=== PATIENT | male | born 1950 | race Asian ===

== ENCOUNTER 2017-07-22 14:35 | Inpatient (IN) | payer OTHER, MEDICAID ==
--- NOTE | 2017-07-22 15:00 | ED Physician Chart ---
ED Chief Complaint/HPI - Patient Information Date Seen:: 07/22/17 Time Seen:: 14:50 Chief Complaint:: diarrhea History of Present Illness:: [facility]. He was diagnosed as having C diff. diarrhea and has apparently been receiving antibiotics for it but the diarrhea continues. Historian:: Medical Records Review:: Transfer documents Reviewed ED Review of Systems - Review of Systems General/Constitutional: No fever, No chills, No weight loss, No weakness, No diaphoresis, No edema, No loss of appetite Skin: No skin lesions, No rash, No bruising Head: No headache, No light-headedness Eyes: No loss of vision, No pain, No diplopia ENT: No earache, No nasal drainage, No sore throat, No tinnitus Neck: No neck pain, No swelling, No thyromegaly, No stiffness, No mass noted Cardio Vascular: No chest pain, No palpitations, No PND, No orthopnea, No edema Pulmonary: No SOB, No cough, No sputum, No wheezing GI: No nausea, No vomiting, Diarrhea, No pain, No melena, No hematochezia, No constipation, No hematemesis G/U: No dysuria, No frequency, No hematuria Musculoskeletal: No bone or joint pain, No back pain, No muscle pain Endocrine: No polyuria, No polydipsia Psychiatric: No prior psych history, No depression, No anxiety, No suicidal ideation Hematopoietic: No bruising, No lymphadenopathy Allergic/Immuno: No urticaria, No angioedema Neurological: No syncope, No focal symptoms, No weakness, No paresthesia, No headache, No seizure, No dizziness, No confusion, No vertigo ED Past Medical History - Past Medical History Past Medical History: HTN, DM, CVA/TIA, Dementia, Other (C. difficile; atherosclerotic cardiovascular disease; neurogenic bladder) Family History: Other (unavailable) Social History: Care Facility Surgical History: other (suprapubic catheter) Psychiatricy History: Dementia Medication: Reviewed Family Medical History - Family Member Mother History Unknown: Yes Ethnicity: Non- Living Status: Unknown ED Physical Exam - Physical Examination Other Gen/Cons comments:: Mild chronically ill-appearing; in no acute distress Head: Atraumatic Eyes: Lids, conjuctiva normal, PERRL Other Skin comments:: Several decubiti present ENMT: External ears, nose nl, Nasal exam nl, Lips, teeth, gums nl Neck: No stridor Respiratory: Nl effort/Exclusion, Clear to Auscultation Cardio Vascular: RRR, No murmur, gallop, rubs GI: No tenderness/rebounding/guarding, No organomegaly, No hernia, Normal BS's, Nondistended, No mass/bruits Other Extremities comments:: Contracture left hand Neuro/Psych: No focal deficits (contracture right hand) ED Labs/Radiology/EKG Results - Lab Results Results: Laboratory Results - last 24 hr 07/22/17 07/22/17 15:05 15:05 WBC 8.7 RBC 3.45 L Hgb 9.7 L Hct 29.7 L MCV 86.1 MCH 28.0 MCHC Differential 32.5 RDW 17.4 Plt Count 391 MPV 6.7 Neutrophils % 78.1 Lymphocytes % 11.8 L Monocytes % 5.6 Eosinophils % 4.2 Basophils % 0.3 Sodium 136 Potassium 3.6 Chloride 107 Carbon Dioxide 17.4 L Anion Gap 15.2 BUN 21 Creatinine 0.8 Est GFR ( Amer) > 60.0 Est GFR (Non-Af Amer) > 60.0 BUN/Creatinine Ratio 26.3 Glucose 218 H Calcium 8.8 Comments:: Chest x-ray was normal except for elevation of right hemidiaphragm ED Septic Shock - . Is Septic Shock (SBP<90, OR Lactate>4 mmol\L) present?: No ED Reassessment (Disposition) - Reassessment Reassessment Condition:: Unchanged - Diagnosis Diagnosis:: Anemia; the disc diarrhea - Patient Disposition Admitted to:: Med/Surg Spoke to:: Corby Arias Admitting Medical Physician:: Corby Arias Condition at Disposition:: Stable, Unchanged
[2017-07-22] MEDS ORDERED: Sodium Chloride 0.9% 1,000 ML IV ONE (15:11)
[2017-07-22 15:15] LABS: % BASOPHILS 0.3 % (0.0-2.0); % EOSINOPHILS 4.2 % (0.0-5.0); % LYMPHOCYTES 11.8 % (20.0-50.0); % MONOCYTES 5.6 % (2.0-10.0); % NEUTROPHILS 78.1 % (40.0-80.0); EOSINOPHILE ABSOLUTE 0.4 Th/cmm (0.1-0.4); HEMATOCRIT 29.7 % (41.0-60); HEMOGLOBIN 9.7 gm/dL (12-16); MEAN CELL VOLUME 86.1 fl (80-99); MEAN CORPUSCULAR HGB CONC 32.5 pg (28.0-36.0); MEAN PLATELET VOLUME 6.7 fl; MONOCYTE ABSOLUTE 0.5 Th/cmm (0.3-1.0); NEUTROPHILE ABSOLUTE 6.8 Th/cmm (1.8-8.0); PLATELET COUNT 391 Th/cmm (150-400); RED BLOOD COUNT 3.45 Mil/cmm (3.80-5.80); RED CELL DISTRIBUTION WIDTH 17.4 % (11.5-20.0); WHITE BLOOD COUNT 8.7 Th/cmm (4.8-10.8)
[2017-07-22 15:34] LABS: ANION GAP 15.2 (7.0-16.0); BUN - UREA NITROGEN 21 mg/dL (7-25); CALCIUM SERUM 8.8 mg/dL (8.6-10.3); CARBON DIOXIDE 17.4 mEq/L (21.0-31.0); CHLORIDE 107 mEq/L (98-107); CREATININE - SERUM 0.8 mg/dL (0.7-1.3); GFR AFRICAN-AMERICAN > 60.0 ml/min (>90); GFR NON AFRICAN-AMERICAN > 60.0 ml/min; GLUCOSE 218 mg/dL (70-105); POTASSIUM SERUM 3.6 mEq/L (3.5-5.1); SODIUM SERUM 136 mEq/L (136-145)
[2017-07-22 18:59] LABS: A1C % 7.9 % (4.0-6.0)
[2017-07-22] MEDS ORDERED: D5-0.45NS 1,000 ML IV ONE (21:17)
[2017-07-22 23:35] VITALS: BP 117/65
--- NOTE | 2017-07-22 23:47 | Consultation ---
Consult Note - Consult Note Service Date: 07/22/17 Referring Physician: Corby Arias Consult Note: PHYSICIAN Consultation Note: Date of Admission: 07/22/17 Purpose of Consultation: CDAC. Chief Complaint: Patient JUNIOR HAQUE was admitted to location Medical/Surgical Unit I with DIARHHEA. History of Present Illness: 67-year-old male with a past medical history of HTN , DM, CVA/TIA, Dementia, C. difficile colitis, neurogenic bladder, coronary artery disease brought from a nursing facility for diarrhea. History came positive for C. difficile colitis and started on vancomycin by mouth. He was sent to the ER for further evaluation and management. On initial evaluation, his temperature is 98.2F and WBC count was 8400. Infectious disease consultation was called for treatment of C. difficile colitis. Past Medical History: HTN, DM, CVA/TIA, Dementia, C. difficile colitis, neurogenic bladder, carotid disease Allergies Allergy/AdvReac Type Severity Reaction Status Date / Time No Known Allergies Allergy Verified 07/22/17 15:26 Vital Signs Temp 98.1 F 07/22/17 20:04 Pulse 82 07/22/17 20:04 Resp 18 07/22/17 20:04 BP 117/65 07/22/17 23:34 Pulse Ox 98 07/22/17 20:04 Intake & Output 07/22/17 07/22/17 07/23/17 06:59 18:59 06:59 Weight (lbs) 79.407 kg Home Medication Medication Instructions Recorded Type Acetaminophen [Tylenol] 650 mg PO Q6HR PRN 07/22/17 History Acetaminophen [Tylenol] 650 mg PO Q6HR PRN 07/22/17 History Allopurinol 100 mg PO DAILY 07/22/17 History Amlodipine Besylate 5 mg PO DAILY 07/22/17 History Ascorbic Acid [Vitamin C] 500 mg PO DAILY 07/22/17 History Aspirin [Children's Aspirin] 81 mg PO DAILY 07/22/17 History Atorvastatin Calcium [Lipitor] 80 mg PO DAILY 07/22/17 History Bisacodyl 10 mg RC DAILY PRN 07/22/17 History Clopidogrel [Plavix] 75 mg PO DAILY 07/22/17 History Docusate Sodium [Colace] 100 mg PO BID 07/22/17 History Fenofibrate [Lipofen] 145 mg PO DAILY 07/22/17 History Ferrous Sulfate [Nadir-Time] 325 mg PO TID 07/22/17 History Fish Oil [[place] 3] 1,000 mg PO DAILY 07/22/17 History Folic Acid [Folate*] 1 mg PO DAILY 07/22/17 History Magnesium Hydroxide [Milk of 30 ml PO DAILY PRN 07/22/17 History Magnesia] Multivit-Min/Iron Fum/Folic AC 1 tab PO DAILY 07/22/17 History [Yunnb-Anirxfn-Vpajjkex Tablet] Niacin 500 mg PO DAILY 07/22/17 History Polyethylene Glycol 3350 [Miralax] 17 gm PO DAILY PRN 07/22/17 History Sennosides A and B [Senna] 8.6 mg PO HS PRN 07/22/17 History Tramadol HCl [Ultram] 50 mg pe PO Q6HR PRN 07/22/17 History Vit B1 Mn/B2/B3/B5/B6/B12/C/FA [B 1 tab PO DAILY 07/22/17 History Complex with Vitamin C Tab] Zinc Sulfate 220 mg PO DAILY 07/22/17 History Current Medications Generic Name Dose Route Start Last Admin Trade Name Freq PRN Reason Stop Dose Admin Dextrose/Sodium Chloride 1,000 mls @ 50 mls/hr 07/22/17 21:17 D5-0.45ns IV 07/23/17 17:16 .Q20H ONE Insulin Aspart 0 units 07/23/17 07:30 Novolog Insulin Sliding Scale SUBQ 09/21/17 07:29 ACHS [facility] Protocol Vancomycin HCl 250 mg 07/23/17 09:00 Vancomycin Oral PO 09/21/17 08:59 QID [facility] Review of Systems: A 12 point ROS was reviewed with the pertinent positive and negatives noted in the HPI. General/Constitutional: No fever, No chills, No weight loss, No weakness, No diaphoresis, No edema, No loss of appetite Skin: No skin lesions, No rash, No bruising Head: No headache, No light-headedness Eyes: No loss of vision, No pain, No diplopia ENT: No earache, No nasal drainage, No sore throat, No tinnitus Neck: No neck pain, No swelling, No thyromegaly, No stiffness, No mass noted Cardio Vascular: No chest pain, No palpitations, No PND, No orthopnea, No edema Pulmonary: No SOB, No cough, No sputum, No wheezing GI: No nausea, No vomiting, No pain, No melena, No hematochezia, No constipation , No hematemesis. Diarrhea present. G/U: No dysuria, No frequency, No hematuria Musculoskeletal: No bone or joint pain, No back pain, No muscle pain Endocrine: No polyuria, No polydipsia Psychiatric: No prior psych history, No depression, No anxiety, No suicidal ideation Hematopoietic: No bruising, No lymphadenopathy Allergic/Immuno: No urticaria, No angioedema Neurological: No syncope, No focal symptoms, No weakness, No paresthesia, No headache, No seizure, No dizziness, No confusion, No vertigo Physical Exam: General: Comfortable, not in acute distress. HEENT: Head: Normocephalic. Oral cavity: Moist, pink tongue eyes: No pallor. No icterus. Pupil PERRLA. EOMI. Neck: Supple, no Stephanie. No use of X his neck muscles. Cardio: S1 and S2 within normal limits regular rhythm no murmur or gallop. Respiratory: Vesicular breath sound no crackles no wheezing. Abdominal: Soft, Nontender, nondistended bowel symptoms present. Genital/Urinary: Deferred. Extremities: No cyanosis, no clubbing, no edema. Neurological: Alert, awake, oriented 3. Assessment: 1. C. difficile colitis. No diarrhea now. 2. CVA. 3. HTN. 4. DM 2. 5. Coronary artery disease 6. Dementia, 7. Neurogenic bladder. Plan: Continue vancomycin orally 14 days. The patient has no diarrhea, for 48 hours. May discontinue isolation. Thank you, Dr. Arias for involving me in taking care of this patient. Signed, Magdiel Fall M.D. [id number]
[2017-07-23 06:30] LABS: % BASOPHILS 0.3 % (0.0-2.0); % EOSINOPHILS 4.6 % (0.0-5.0); % LYMPHOCYTES 9.2 % (20.0-50.0); % MONOCYTES 6.3 % (2.0-10.0); % NEUTROPHILS 79.6 % (40.0-80.0); EOSINOPHILE ABSOLUTE 0.4 Th/cmm (0.1-0.4); HEMATOCRIT 27.1 % (41.0-60); LYMPHOCYTE ABSOLUTE 0.8 Th/cmm (1.5-3.0); MEAN CELL VOLUME 86.2 fl (80-99); MEAN CORPUSCULAR HEMOGLOBIN 28.6 pg (27.0-31.0); MEAN CORPUSCULAR HGB CONC 33.2 pg (28.0-36.0); MONOCYTE ABSOLUTE 0.5 Th/cmm (0.3-1.0); NEUTROPHILE ABSOLUTE 6.7 Th/cmm (1.8-8.0); PLATELET COUNT 378 Th/cmm (150-400); RED BLOOD COUNT 3.15 Mil/cmm (3.80-5.80); WHITE BLOOD COUNT 8.4 Th/cmm (4.8-10.8)
[2017-07-23 06:31] LABS: ANION GAP 11.4 (7.0-16.0); BUN - UREA NITROGEN 17 mg/dL (7-25); CALCIUM SERUM 8.6 mg/dL (8.6-10.3); CARBON DIOXIDE 22.6 mEq/L (21.0-31.0); CHLORIDE 110 mEq/L (98-107); CREATININE - SERUM 0.7 mg/dL (0.7-1.3); GFR AFRICAN-AMERICAN > 60.0 ml/min (>90); GFR NON AFRICAN-AMERICAN > 60.0 ml/min; GLUCOSE 184 mg/dL (70-105); SODIUM SERUM 141 mEq/L (136-145)
--- NOTE | 2017-07-23 07:50 | Diagnostic Imaging Report ---
Portable chest x-ray Time: 1516 History: Pneumonia Allowing for portable technique the heart size is normal. No focal pulmonary parenchymal processes. No hilar or mediastinal abnormalities. Impression: No acute abnormalities.
[2017-07-23] MEDS ORDERED: Potassium Chloride 40 MEQ, Lidocaine 1% 20mL Vial 25 MG in Sodium Chloride 0.9% 250 ML IV ONE (08:03)
[2017-07-23] MEDS ORDERED: Probiotic Screen MC PRN (08:30)
[2017-07-23] MEDS: INSULIN ASPART SLIDING SCALE 100 UNITS/ML UNIT SUBQ SCH ×4 (08:47→21:20)
[2017-07-23] MEDS: KCL 20mEq/100mL Premix Bag IV SCH ×2 (08:48→11:16)
[2017-07-23] MEDS: Vancomycin HCL 250 mg /10mL UDC PO SCH ×4 (09:22→21:21)
--- NOTE | 2017-07-23 13:29 | History & Physical ---
ADMIT DATE: 07/22/2017 HISTORY OF PRESENT ILLNESS: The patient is a 67-year-old male patient who was having more diarrhea, dehydration at skilled facility. The patient came to the Emergency Room and was admitted. The patient known to have history of C diff infection, has been taking antibiotics. Complains of dizziness, severe weakness. Otherwise, system review is negative. PAST MEDICAL HISTORY: Hypertension, history of diabetes, and history of dementia. PHYSICAL EXAMINATION: GENERAL: Alert, oriented, chronically ill looking male patient. VITAL SIGNS: Noted on the chart. HEAD: Normal. ENT: Normal. NECK: Supple, nontender. LUNGS: Clear. CARDIOVASCULAR SYSTEM: S1, S2 heard. ABDOMEN: Soft. CENTRAL NERVOUS SYSTEM: The patient is confused. LABORATORY AND DIAGNOSTIC DATA: Hemoglobin was low, it was 9.7 indicating anemia. Electrolytes: BUN and creatinine is 21 and 0.5. Chest x-ray showed elevation of the right diaphragm. DIAGNOSES: Chronic anemia, history of diarrhea, enteritis, C diff infection, history of hypertension . PLAN: The patient is being admitted. I will go ahead and have a GI workup as well as ID doctor workup and I will go from there. JOB# [id number]
--- NOTE | 2017-07-23 13:37 | Infectious Disease Prog Note ---
Infectious Disease Subjective - Review of Systems Service Date: 07/23/17 Subjective: No diarrhea no fever. He denies any abdomen pain Infectious Disease Objective - Results Result Diagrams: 07/23/17 05:35 07/23/17 05:35 Recent Labs: Laboratory Last Values WBC 8.4 Th/cmm (4.8-10.8) 07/23/17 05:35 RBC 3.15 Mil/cmm (3.80-5.80) L 07/23/17 05:35 Hgb 9.0 gm/dL (12-16) L 07/23/17 05:35 Hct 27.1 % (41.0-60) L 07/23/17 05:35 MCV 86.2 fl (80-99) 07/23/17 05:35 MCH 28.6 pg (27.0-31.0) 07/23/17 05:35 MCHC Differential 33.2 pg (28.0-36.0) 07/23/17 05:35 RDW 17.0 % (11.5-20.0) 07/23/17 05:35 Plt Count 378 Th/cmm (150-400) 07/23/17 05:35 MPV 7.0 fl 07/23/17 05:35 Neutrophils % 79.6 % (40.0-80.0) 07/23/17 05:35 Lymphocytes % 9.2 % (20.0-50.0) L 07/23/17 05:35 Monocytes % 6.3 % (2.0-10.0) 07/23/17 05:35 Eosinophils % 4.6 % (0.0-5.0) 07/23/17 05:35 Basophils % 0.3 % (0.0-2.0) 07/23/17 05:35 Sodium 141 mEq/L (136-145) 07/23/17 05:35 Potassium 3.0 mEq/L (3.5-5.1) L 07/23/17 05:35 Chloride 110 mEq/L (98-107) H 07/23/17 05:35 Carbon Dioxide 22.6 mEq/L (21.0-31.0) 07/23/17 05:35 Anion Gap 11.4 (7.0-16.0) 07/23/17 05:35 BUN 17 mg/dL (7-25) 07/23/17 05:35 Creatinine 0.7 mg/dL (0.7-1.3) 07/23/17 05:35 Est GFR ( Amer) > 60.0 ml/min (>90) 07/23/17 05:35 Est GFR (Non-Af Amer) > 60.0 ml/min 07/23/17 05:35 BUN/Creatinine Ratio 24.3 07/23/17 05:35 Glucose 184 mg/dL (70-105) H 07/23/17 05:35 POC Glucose 183 MG/DL (70 - 105) H 07/23/17 12:15 Hemoglobin A1c % 7.9 % (4.0-6.0) H 07/22/17 15:05 Calcium 8.6 mg/dL (8.6-10.3) 07/23/17 05:35 TSH 1.71 uIU/ml (0.34-5.60) 07/23/17 05:35 - Physical Exam Vitals and I&O: Vital Signs Temp 98.0 F 07/23/17 11:45 Pulse 47 07/23/17 11:45 Resp 18 07/23/17 11:45 BP 106/52 07/23/17 11:45 Pulse Ox 98 07/23/17 11:45 Intake & Output 07/22/17 07/23/17 07/23/17 18:59 06:59 18:59 Intake Total 300 100 Output Total 550 Balance -250 100 Weight (lbs) 79.407 kg Intake: Intake, IV Amount 100 KCL 20mEq/100mL Premix 20 100 meq In 100 ml @ 50 mls/ hr IV Q2H [facility] Rx#: [id number] Oral 300 Output: Urine 550 Other: Weight Source Bedscale Active Medications: Current Medications [place] Oil/[place] Balsam/Trypsin (Venelex) 1 appl TP DAILY [facility] Stop: 09/21/17 13:59 Dextrose/Sodium Chloride (D5-0.45ns) 1,000 mls @ 50 mls/hr IV .Q20H ONE Stop: 07/23/17 17:16 Last Admin: 07/22/17 21:20 Dose: 50 mls/hr Insulin Aspart (Novolog Insulin Sliding Scale) 0 units SUBQ ACHS [facility] PRN Reason: Protocol Stop: 09/21/17 07:29 Last Admin: 07/23/17 12:20 Dose: 2 units Miscellaneous (Probiotic Screen) 1 ea MC PRN PRN PRN Reason: PROTOCOL Stop: 09/21/17 08:29 Ondansetron HCl (Zofran) 4 mg IV Q6H PRN PRN Reason: nausea/vomiting Stop: 09/21/17 00:59 Last Admin: 07/23/17 01:05 Dose: 4 mg Vancomycin HCl (Vancomycin Oral) 250 mg PO QID [facility] Stop: 09/21/17 08:59 Last Admin: 07/23/17 13:26 Dose: 250 mg General: no acute distress, well developed, well nourished HEENT: atraumatic, normocephalic, PERRLA, EOMI Neck: supple, no thyromegaly Cardiovascular: S1S2, regular Lungs: clear to auscultation bilaterally, clear to percussion, no crackles Abdomen: soft, bowel sounds, no tender, no distended, no mass, no rebound, no hepatomegaly Extremities: no cyanosis, no clubbing, no edema, no lines, no AVF/AVG Neurological: awake, alert, oriented Infectious Disease Assmt/Plan - Assessment Assessment: 1. C. difficile colitis. No diarrhea now. 2. CVA. 3. HTN. 4. DM 2. 5. Coronary artery disease 6. Dementia, 7. Neurogenic bladder. - Plan Plan: Continue vancomycin orally 14 days.
[2017-07-23] MEDS ORDERED: VTE Chemical Prophylaxis Screen/Admission MC PRN (15:05)
[2017-07-23] MEDS: Venelex 60gm Tube TP SCH (16:26)
--- NOTE | 2017-07-23 18:30 | General Progress Note ---
Objective - Results Result Diagrams: 07/23/17 05:35 07/23/17 05:35 Recent Labs: Laboratory Last Values WBC 8.4 Th/cmm (4.8-10.8) 07/23/17 05:35 RBC 3.15 Mil/cmm (3.80-5.80) L 07/23/17 05:35 Hgb 9.0 gm/dL (12-16) L 07/23/17 05:35 Hct 27.1 % (41.0-60) L 07/23/17 05:35 MCV 86.2 fl (80-99) 07/23/17 05:35 MCH 28.6 pg (27.0-31.0) 07/23/17 05:35 MCHC Differential 33.2 pg (28.0-36.0) 07/23/17 05:35 RDW 17.0 % (11.5-20.0) 07/23/17 05:35 Plt Count 378 Th/cmm (150-400) 07/23/17 05:35 MPV 7.0 fl 07/23/17 05:35 Neutrophils % 79.6 % (40.0-80.0) 07/23/17 05:35 Lymphocytes % 9.2 % (20.0-50.0) L 07/23/17 05:35 Monocytes % 6.3 % (2.0-10.0) 07/23/17 05:35 Eosinophils % 4.6 % (0.0-5.0) 07/23/17 05:35 Basophils % 0.3 % (0.0-2.0) 07/23/17 05:35 Sodium 141 mEq/L (136-145) 07/23/17 05:35 Potassium 3.0 mEq/L (3.5-5.1) L 07/23/17 05:35 Chloride 110 mEq/L (98-107) H 07/23/17 05:35 Carbon Dioxide 22.6 mEq/L (21.0-31.0) 07/23/17 05:35 Anion Gap 11.4 (7.0-16.0) 07/23/17 05:35 BUN 17 mg/dL (7-25) 07/23/17 05:35 Creatinine 0.7 mg/dL (0.7-1.3) 07/23/17 05:35 Est GFR ( Amer) > 60.0 ml/min (>90) 07/23/17 05:35 Est GFR (Non-Af Amer) > 60.0 ml/min 07/23/17 05:35 BUN/Creatinine Ratio 24.3 07/23/17 05:35 Glucose 184 mg/dL (70-105) H 07/23/17 05:35 POC Glucose 163 MG/DL (70 - 105) H 07/23/17 16:28 Hemoglobin A1c % 7.9 % (4.0-6.0) H 07/22/17 15:05 Calcium 8.6 mg/dL (8.6-10.3) 07/23/17 05:35 TSH 1.71 uIU/ml (0.34-5.60) 07/23/17 05:35 - Physical Exam Vitals and I&O: Vital Signs Temp 98.1 F 07/23/17 15:33 Pulse 51 07/23/17 15:33 Resp 18 07/23/17 15:33 BP 110/69 07/23/17 15:33 Pulse Ox 98 07/23/17 15:33 Intake & Output 07/22/17 07/23/17 07/23/17 18:59 06:59 18:59 Intake Total 300 600 Output Total 550 Balance -250 600 Weight (lbs) 79.407 kg 79.407 kg Intake: Intake, IV Amount 100 KCL 20mEq/100mL Premix 20 100 meq In 100 ml @ 50 mls/ hr IV Q2H [facility] Rx#: [id number] Oral 300 500 Output: Urine 550 Other: # Voids 3 # Bowel Movements 1 Weight Source Bedscale Bedscale Active Medications: Current Medications [place] Oil/[place] Balsam/Trypsin (Venelex) 1 appl TP DAILY [facility] Stop: 09/21/17 13:59 Last Admin: 07/23/17 16:26 Dose: 1 appl Heparin Sodium (Porcine) (Heparin) 5,000 units SUBQ Q12H [facility] Stop: 09/21/17 20:59 Insulin Aspart (Novolog Insulin Sliding Scale) 0 units SUBQ ACHS [facility] PRN Reason: Protocol Stop: 09/21/17 07:29 Last Admin: 07/23/17 16:29 Dose: Not Given Miscellaneous (Probiotic Screen) 1 ea MC PRN PRN PRN Reason: PROTOCOL Stop: 09/21/17 08:29 Miscellaneous (Vte Chemical Prophylaxis Screen/ Admission) 1 ea PRN PRN PRN Reason: PROTOCOL Stop: 09/21/17 15:04 Mupirocin (Bactroban Oint) 1 appl NS BID [facility] Stop: 07/28/17 09:01 Ondansetron HCl (Zofran) 4 mg IV Q6H PRN PRN Reason: nausea/vomiting Stop: 09/21/17 00:59 Last Admin: 07/23/17 01:05 Dose: 4 mg Vancomycin HCl (Vancomycin Oral) 250 mg PO QID [facility] Stop: 09/21/17 08:59 Last Admin: 07/23/17 16:26 Dose: 250 mg Nutritional Asmnt/Malnutr-PDOC - Dietary Evaluation Malnutrition Findings (Please click <Entered> for more info): Nutritional Asmnt/Malnutrition Start: 07/23/17 16: 22 Text: Status: Complete Freq: Document 07/23/17 16:22 ANGELA (Rec: 07/23/17 16:54 LCOTIS [email or web address]) Nutritional Asmnt/Malnutrition Patient General Information Nutritional Screening High Risk Consult Diagnosis diarhhea Pertinent Medical Hx/Surgical Hx HTN, Dm, CVA/TIA, dementia, c- diff, atherosclerotic cardiovasculor disease, newregenic bladdar, suprapubic cathether, dementia Subjective Information Consult received for multiple wounds. Pt seen sitting up in bed having lunch at time of visit. Pt denied N/V today so far, stated appetite "so so". Spoke with CLEMENT Rivas, pt has been eating ok today. Current Diet Order/ Nutrition Support soft/bland Pertinent Medications D5-0.45ns, heparin, novolog, zofran, vancomycin Pertinent Labs 07/23 K 3.0, cl 110, glucose 184, POC 173-183 07/22 glucose 218, a1c 7.9 Nutritional Hx/Data Height 1.7 m Height (Calculated Centimeters) 170.2 Current Weight (lbs) 79.379 kg Weight (Calculated Kilograms) 79.4 Weight (Calculated Grams) 91344.7 [place] Body Weight 148 Body Mass Index (BMI) 27.3 Weight Status Overweight GI Symptoms GI Symptoms Nausea Vomitting Last BM not indicated Difficult in: None Skin Integrity/Comment: pressure ulceration to left foot, right ankle, right hip, left hip and sacrum Estimated Nutritional Goals BEE in Kcals: Adj wt of IBW Calories/Kcals/Kg 25-30 Kcals Calculated 7826-9113 Protein: Adj wt of IBW Protein g/k.2-1.4 Protein Calculated 84-98 Fluid: ml 1750-2100ml (1ml/kcal) Nutritional Problem 2. Problem Problem increased nutrition needs Etiology increased metabolic demand Signs/Symptoms: pressure ulcer multiple sites 1. Problem Problem altered nutrition related labs Etiology hx of DM Signs/Symptoms: glucose 184-218, POC 173-183, a1c 7.9 Malnutrition Alert Protein-Calorie Malnutrition N/A Is there a minimum of two criteria No selected? Query Text:Check all the applicable criteria. A minimum of two criteria are recommended for diagnosis of either severe or non-severe malnutrition. Intervention/Recommendation Comments 1. Recommend adding CCHO-60gm diet for better glycemia control, Arginaid BID for wound healing. RN notified. 2. Monitor PO intake, wt, labs and skin integrity 3. F/U as high risk in 2-3 days, 07/25-07/26 Expected Outcomes/Goals Expected Outcomes/Goals 1. PO intake to meet at least 75% of nutritional needs. 2. Wt stability, skin integrity to improve, labs to approach WNL.
--- NOTE | 2017-07-24 00:09 | Consultation ---
DATE OF CONSULTATION: 07/23/2017 GASTROENTEROLOGY CONSULTATION REQUESTING PHYSICIAN: Gregg Arias M.D. REASON FOR CONSULTATION: Diarrhea. HISTORY OF PRESENT ILLNESS: A 67-year-old male with history of C. diff colitis in the recent past, admitted from his snf for diarrhea. He also has anemia, old stroke, diabetes mellitus, hypertension, coronary artery disease, encephalopathy, and neurogenic bladder. PAST MEDICAL HISTORY: As above. MEDICATIONS: Here are subcutaneous heparin, insulin sliding scale, probiotics, Bactroban ointment, Zofran p.r.n., oral vancomycin. ALLERGIES: No known drug allergies. SOCIAL HISTORY: No recent tobacco, alcohol, or drugs. FAMILY HISTORY: Noncontributory. REVIEW OF SYSTEMS: A comprehensive 12-point review of systems conducted and is positive for those signs and symptoms present in history of present illness. PHYSICAL EXAMINATION: VITAL SIGNS: Temperature 98.8, blood pressure 111/60, pulse of 88, respirations 18, and O2 sats 99%. GENERAL: The patient is well-developed, well-nourished elderly male, in no acute distress. HEENT: Sclerae nonicteric. Oropharynx is clear. CARDIOVASCULAR: Regular rate and rhythm. LUNGS: Clear to auscultation bilaterally. ABDOMEN: Soft, nontender, and nondistended. EXTREMITIES: No clubbing or cyanosis. RECTAL: Deferred. LABORATORY DATA AND IMAGING: WBC 8.4, hemoglobin 9, and platelet count is 358. Creatinine is 0.7. IMPRESSION: 1. Diarrhea secondary to Clostridium difficile colitis. 2. Anemia. 3. History of old stroke. 4. History of diabetes mellitus. 5. Hypertension. 6. Coronary artery disease. 7. Dementia. 8. Neurogenic bladder. RECOMMENDATIONS: 1. Continue oral vancomycin as per ID case consultant. 2. Probiotics. 3. Oral diet as tolerated. 4. Monitor hemoglobin. 5. He will need endoscopic GI workup at some time in the future if not done recently or prior. If needed, colonoscopy and/or upper endoscopy can be done for workup of anemia once C. diff infection has resolved. Can be done as outpatient. Thank you, Dr. Gregg Arias for involving us in the care of your patient. If you have any further questions, please call us. JOB# [id number] LILIAM
[2017-07-24] MEDS: INSULIN ASPART SLIDING SCALE 100 UNITS/ML UNIT SUBQ SCH ×4 (08:10→21:05)
[2017-07-24] MEDS: Venelex 60gm Tube TP SCH (08:15)
[2017-07-24] MEDS: Vancomycin HCL 250 mg /10mL UDC PO SCH ×4 (08:16→21:09)
[2017-07-24] MEDS ORDERED: Sodium Chloride 0.45% 1,000 ML IV SCH (10:38)
[2017-07-24] MEDS: Sodium Chloride 0.45% 1,000 ML IV SCH (11:30)
--- NOTE | 2017-07-24 13:41 | Progress Notes ---
DATE: 07/24/2017 SUBJECTIVE: The patient was seen in his room. The patient is a poor historian due to medical condition otherwise the patient appears to be in no acute distress. OBJECTIVE: VITAL SIGNS: Temperature 97.5, heart rate of 84, blood pressure 97/50, respiration of 18 and 95% on room air. HEENT: Head is atraumatic and normocephalic. Eyes: Bilateral conjunctivae are clear. Bilateral pupils are equally round and reactive. NECK: Supple. No JVD. CARDIOVASCULAR: S1 and S2, without murmur. PULMONARY: Clear to auscultation. GASTROINTESTINAL: Soft and nontender without guarding. Positive bowel sounds. MUSCULOSKELETAL: No clubbing. No cyanosis noted. ASSESSMENT: 1. Diarrhea secondary to Clostridium difficile colitis. 2. Anemia. 3. Dementia. 4. Hypertension. 5. Coronary artery disease. 6. Neurogenic bladder. 7. History of cerebrovascular accident. PLAN: We will continue current antibiotics and follow up with ID doctor. We are also going to follow up with the GI doctor for possible endoscopic workup, also going to put the patient on half NS at 75 mL per hour for hydration. Treatment plans were discussed with the patient's nurse. Treatment plans were discussed with Dr. Arias. JOB# [id number]
--- NOTE | 2017-07-24 17:46 | Infectious Disease Prog Note ---
Infectious Disease Subjective - Review of Systems Service Date: 07/24/17 Subjective: No diarrhea no fever. He denies any abdomen pain Infectious Disease Objective - Results Result Diagrams: 07/23/17 05:35 07/23/17 05:35 Recent Labs: Laboratory Last Values WBC 8.4 Th/cmm (4.8-10.8) 07/23/17 05:35 RBC 3.15 Mil/cmm (3.80-5.80) L 07/23/17 05:35 Hgb 9.0 gm/dL (12-16) L 07/23/17 05:35 Hct 27.1 % (41.0-60) L 07/23/17 05:35 MCV 86.2 fl (80-99) 07/23/17 05:35 MCH 28.6 pg (27.0-31.0) 07/23/17 05:35 MCHC Differential 33.2 pg (28.0-36.0) 07/23/17 05:35 RDW 17.0 % (11.5-20.0) 07/23/17 05:35 Plt Count 378 Th/cmm (150-400) 07/23/17 05:35 MPV 7.0 fl 07/23/17 05:35 Neutrophils % 79.6 % (40.0-80.0) 07/23/17 05:35 Lymphocytes % 9.2 % (20.0-50.0) L 07/23/17 05:35 Monocytes % 6.3 % (2.0-10.0) 07/23/17 05:35 Eosinophils % 4.6 % (0.0-5.0) 07/23/17 05:35 Basophils % 0.3 % (0.0-2.0) 07/23/17 05:35 Sodium 141 mEq/L (136-145) 07/23/17 05:35 Potassium 3.0 mEq/L (3.5-5.1) L 07/23/17 05:35 Chloride 110 mEq/L (98-107) H 07/23/17 05:35 Carbon Dioxide 22.6 mEq/L (21.0-31.0) 07/23/17 05:35 Anion Gap 11.4 (7.0-16.0) 07/23/17 05:35 BUN 17 mg/dL (7-25) 07/23/17 05:35 Creatinine 0.7 mg/dL (0.7-1.3) 07/23/17 05:35 Est GFR ( Amer) > 60.0 ml/min (>90) 07/23/17 05:35 Est GFR (Non-Af Amer) > 60.0 ml/min 07/23/17 05:35 BUN/Creatinine Ratio 24.3 07/23/17 05:35 Glucose 184 mg/dL (70-105) H 07/23/17 05:35 POC Glucose 196 MG/DL (70 - 105) H 07/24/17 17:38 Hemoglobin A1c % 7.9 % (4.0-6.0) H 07/22/17 15:05 Calcium 8.6 mg/dL (8.6-10.3) 07/23/17 05:35 TSH 1.71 uIU/ml (0.34-5.60) 07/23/17 05:35 - Physical Exam Vitals and I&O: Vital Signs Temp 97.3 F 07/24/17 15:51 Pulse 91 07/24/17 15:51 Resp 18 07/24/17 15:51 BP 120/78 07/24/17 15:51 Pulse Ox 95 07/24/17 15:51 Intake & Output 07/23/17 07/24/17 07/24/17 18:59 06:59 18:59 Intake Total 600 100 Output Total 575 Balance 600 -475 Weight (lbs) 79.407 kg 86.183 kg Intake: Intake, IV Amount 100 KCL 20mEq/100mL Premix 20 100 meq In 100 ml @ 50 mls/ hr IV Q2H [facility] Rx#: [id number] Oral 500 Other 100 Output: Urine 575 Other: # Voids 3 # Bowel Movements 1 1 Weight Source Bedscale Bedscale Active Medications: Current Medications [place] Oil/[place] Balsam/Trypsin (Venelex) 1 appl TP DAILY [facility] Stop: 09/21/17 13:59 Last Admin: 07/24/17 08:15 Dose: 1 appl Heparin Sodium (Porcine) (Heparin) 5,000 units SUBQ Q12H [facility] Stop: 09/21/17 20:59 Last Admin: 07/24/17 08:11 Dose: 5,000 units Sodium Chloride (Nacl 0.45%) 1,000 mls @ 75 mls/hr IV .[id number] [facility] Stop: 09/22/17 10:38 Insulin Aspart (Novolog Insulin Sliding Scale) 0 units SUBQ ACHS [facility] PRN Reason: Protocol Stop: 09/21/17 07:29 Last Admin: 07/24/17 12:20 Dose: 2 units Miscellaneous (Probiotic Screen) 1 ea PRN PRN PRN Reason: PROTOCOL Stop: 09/21/17 08:29 Miscellaneous (Vte Chemical Prophylaxis Screen/ Admission) 1 ea PRN PRN PRN Reason: PROTOCOL Stop: 09/21/17 15:04 Mupirocin (Bactroban Oint) 1 appl NS BID [facility] Stop: 07/28/17 09:01 Last Admin: 07/24/17 08:16 Dose: 1 appl Ondansetron HCl (Zofran) 4 mg IV Q6H PRN PRN Reason: nausea/vomiting Stop: 09/21/17 00:59 Last Admin: 07/23/17 01:05 Dose: 4 mg Vancomycin HCl (Vancomycin Oral) 250 mg PO QID [facility] Stop: 09/21/17 08:59 Last Admin: 07/24/17 12:21 Dose: 250 mg General: no acute distress, well developed, well nourished HEENT: atraumatic, normocephalic, PERRLA Neck: supple, no thyromegaly Cardiovascular: S1S2, regular Lungs: clear to auscultation bilaterally, clear to percussion Abdomen: soft, no tender, no distended Extremities: no cyanosis, no clubbing, no edema Neurological: awake, alert, oriented Skin: intact Infectious Disease Assmt/Plan - Assessment Assessment: 1. C. difficile colitis. No diarrhea now. 2. CVA. 3. HTN. 4. DM 2. 5. Coronary artery disease 6. Dementia, 7. Neurogenic bladder. - Plan Plan: Continue vancomycin orally 14 days. DC planning Nutritional Asmnt/Malnutr-PDOC - Dietary Evaluation Malnutrition Findings (Please click <Entered> for more info): Nutritional Asmnt/Malnutrition Start: 07/23/17 16: 22 Text: Status: Complete Freq: Document 07/23/17 16:22 LCHENG (Rec: 07/23/17 16:54 LCHENG [email or web address]) Nutritional Asmnt/Malnutrition Patient General Information Nutritional Screening High Risk Consult Diagnosis diarhhea Pertinent Medical Hx/Surgical Hx HTN, Dm, CVA/TIA, dementia, c- diff, atherosclerotic cardiovasculor disease, newregenic bladdar, suprapubic cathether, dementia Subjective Information Consult received for multiple wounds. Pt seen sitting up in bed having lunch at time of visit. Pt denied N/V today so far, stated appetite "so so". Spoke with CLEMENT Rivas, pt has been eating ok today. Current Diet Order/ Nutrition Support soft/bland Pertinent Medications D5-0.45ns, heparin, novolog, zofran, vancomycin Pertinent Labs 07/23 K 3.0, cl 110, glucose 184, POC 173-183 07/22 glucose 218, a1c 7.9 Nutritional Hx/Data Height 1.7 m Height (Calculated Centimeters) 170.2 Current Weight (lbs) 79.379 kg Weight (Calculated Kilograms) 79.4 Weight (Calculated Grams) 55795.7 [place] Body Weight 148 Body Mass Index (BMI) 27.3 Weight Status Overweight GI Symptoms GI Symptoms Nausea Vomitting Last BM not indicated Difficult in: None Skin Integrity/Comment: pressure ulceration to left foot, right ankle, right hip, left hip and sacrum Estimated Nutritional Goals BEE in Kcals: Adj wt of IBW Calories/Kcals/Kg 25-30 Kcals Calculated 5800-1691 Protein: Adj wt of IBW Protein g/k.2-1.4 Protein Calculated 84-98 Fluid: ml 1750-2100ml (1ml/kcal) Nutritional Problem 2. Problem Problem increased nutrition needs Etiology increased metabolic demand Signs/Symptoms: pressure ulcer multiple sites 1. Problem Problem altered nutrition related labs Etiology hx of DM Signs/Symptoms: glucose 184-218, POC 173-183, a1c 7.9 Malnutrition Alert Protein-Calorie Malnutrition N/A Is there a minimum of two criteria No selected? Query Text:Check all the applicable criteria. A minimum of two criteria are recommended for diagnosis of either severe or non-severe malnutrition. Intervention/Recommendation Comments 1. Recommend adding CCHO-60gm diet for better glycemia control, Arginaid BID for wound healing. RN notified. 2. Monitor PO intake, wt, labs and skin integrity 3. F/U as high risk in 2-3 days, 07/25-07/26 Expected Outcomes/Goals Expected Outcomes/Goals 1. PO intake to meet at least 75% of nutritional needs. 2. Wt stability, skin integrity to improve, labs to approach WNL.
[2017-07-25] MEDS: Sodium Chloride 0.45% 1,000 ML IV SCH ×2 (05:19→18:12)
[2017-07-25] MEDS: INSULIN ASPART SLIDING SCALE 100 UNITS/ML UNIT SUBQ SCH ×4 (06:48→22:08)
[2017-07-25 06:57] LABS: % BASOPHILS 0.5 % (0.0-2.0); % EOSINOPHILS 2.9 % (0.0-5.0); % LYMPHOCYTES 13.2 % (20.0-50.0); % MONOCYTES 7.3 % (2.0-10.0); % NEUTROPHILS 76.1 % (40.0-80.0); EOSINOPHILE ABSOLUTE 0.3 Th/cmm (0.1-0.4); HEMATOCRIT 26.2 % (41.0-60); HEMOGLOBIN 8.7 gm/dL (12-16); LYMPHOCYTE ABSOLUTE 1.3 Th/cmm (1.5-3.0); MEAN CELL VOLUME 86.4 fl (80-99); MEAN CORPUSCULAR HEMOGLOBIN 28.8 pg (27.0-31.0); MEAN CORPUSCULAR HGB CONC 33.4 pg (28.0-36.0); MEAN PLATELET VOLUME 7.1 fl; MONOCYTE ABSOLUTE 0.7 Th/cmm (0.3-1.0); NEUTROPHILE ABSOLUTE 7.3 Th/cmm (1.8-8.0); PLATELET COUNT 357 Th/cmm (150-400); RED BLOOD COUNT 3.03 Mil/cmm (3.80-5.80); RED CELL DISTRIBUTION WIDTH 17.5 % (11.5-20.0); WHITE BLOOD COUNT 9.6 Th/cmm (4.8-10.8)
[2017-07-25 07:10] LABS: ANION GAP 9.5 (7.0-16.0); BUN - UREA NITROGEN 11 mg/dL (7-25); CALCIUM SERUM 7.9 mg/dL (8.6-10.3); CHLORIDE 108 mEq/L (98-107); CREATININE - SERUM 0.6 mg/dL (0.7-1.3); GFR AFRICAN-AMERICAN > 60.0 ml/min (>90); GFR NON AFRICAN-AMERICAN > 60.0 ml/min; GLUCOSE 167 mg/dL (70-105); POTASSIUM SERUM 3.5 mEq/L (3.5-5.1); SODIUM SERUM 136 mEq/L (136-145)
[2017-07-25] MEDS: Vancomycin HCL 250 mg /10mL UDC PO SCH ×4 (09:39→21:58)
[2017-07-25] MEDS: Venelex 60gm Tube TP SCH (09:40)
--- NOTE | 2017-07-25 13:52 | Infectious Disease Prog Note ---
Infectious Disease Subjective - Review of Systems Service Date: 07/18/17 Subjective: No diarrhea no fever. He denies any abdomen pain Infectious Disease Objective - Results Result Diagrams: 07/25/17 06:30 07/25/17 06:30 Recent Labs: Laboratory Last Values WBC 9.6 Th/cmm (4.8-10.8) 07/25/17 06:30 RBC 3.03 Mil/cmm (3.80-5.80) L 07/25/17 06:30 Hgb 8.7 gm/dL (12-16) L 07/25/17 06:30 Hct 26.2 % (41.0-60) L 07/25/17 06:30 MCV 86.4 fl (80-99) 07/25/17 06:30 MCH 28.8 pg (27.0-31.0) 07/25/17 06:30 MCHC Differential 33.4 pg (28.0-36.0) 07/25/17 06:30 RDW 17.5 % (11.5-20.0) 07/25/17 06:30 Plt Count 357 Th/cmm (150-400) 07/25/17 06:30 MPV 7.1 fl 07/25/17 06:30 Neutrophils % 76.1 % (40.0-80.0) 07/25/17 06:30 Lymphocytes % 13.2 % (20.0-50.0) L 07/25/17 06:30 Monocytes % 7.3 % (2.0-10.0) 07/25/17: Eosinophils % 2.9 % (0.0-5.0) 07/25/17: Basophils % 0.5 % (0.0-2.0) 07/25/17 06:30 Sodium 136 mEq/L (136-145) 07/25/17 06:30 Potassium 3.5 mEq/L (3.5-5.1) 07/25/17 06:30 Chloride 108 mEq/L (98-107) H 07/25/17 06:30 Carbon Dioxide 22.0 mEq/L (21.0-31.0) 07/25/17 06:30 Anion Gap 9.5 (7.0-16.0) 07/25/17 06:30 BUN 11 mg/dL (7-25) 07/25/17 06:30 Creatinine 0.6 mg/dL (0.7-1.3) L 07/25/17 06:30 Est GFR ( Amer) > 60.0 ml/min (>90) 07/25/17 06:30 Est GFR (Non-Af Amer) > 60.0 ml/min 07/25/17 06:30 BUN/Creatinine Ratio 18.3 07/25/17 06:30 Glucose 167 mg/dL (70-105) H 07/25/17 06:30 POC Glucose 222 MG/DL (70 - 105) H 07/25/17 11:52 Hemoglobin A1c % 7.9 % (4.0-6.0) H 07/22/17 15:05 Calcium 7.9 mg/dL (8.6-10.3) L 07/25/17 06:30 TSH 1.71 uIU/ml (0.34-5.60) 07/23/17 05:35 - Physical Exam Vitals and I&O: Vital Signs Temp 98.4 F 07/25/17 11:55 Pulse 81 07/25/17 11:55 Resp 19 07/25/17 11:55 BP 110/64 07/25/17 11:55 Pulse Ox 97 07/25/17 11:55 Intake & Output 07/24/17 07/25/17 07/25/17 18:59 06:59 18:59 Intake Total 450 1100 Output Total 500 200 Balance -50 900 Weight (lbs) 86.183 kg 91.626 kg Intake: Intake, IV Amount 1000 Sodium Chloride 0.45% 1, 1000 000 ml @ 75 mls/hr IV . [id number] [facility] Rx#:[id number] Oral 450 100 Output: Urine 500 200 Other: # Voids 3 # Bowel Movements 2 0 Stool Characteristics Liquid Brown Green Weight Source Bedscale Bedscale Active Medications: Current Medications [place] Oil/[place] Balsam/Trypsin (Venelex) 1 appl TP DAILY [facility] Stop: 09/21/17 13:59 Last Admin: 07/25/17 09:40 Dose: 1 appl Heparin Sodium (Porcine) (Heparin) 5,000 units SUBQ Q12H [facility] Stop: 09/21/17 20:59 Last Admin: 07/25/17 09:35 Dose: 5,000 units Sodium Chloride (Nacl 0.45%) 1,000 mls @ 75 mls/hr IV .[id number] [facility] Stop: 09/22/17 10:38 Last Admin: 07/25/17 05:19 Dose: 75 mls/hr Insulin Aspart (Novolog Insulin Sliding Scale) 0 units SUBQ ACHS [facility] PRN Reason: Protocol Stop: 09/21/17 07:29 Last Admin: 07/25/17 13:00 Dose: 4 units Miscellaneous (Probiotic Screen) 1 ea PRN PRN PRN Reason: PROTOCOL Stop: 09/21/17 08:29 Miscellaneous (Vte Chemical Prophylaxis Screen/ Admission) 1 ea PRN PRN PRN Reason: PROTOCOL Stop: 09/21/17 15:04 Mupirocin (Bactroban Oint) 1 appl NS BID [facility] Stop: 07/28/17 09:01 Last Admin: 07/25/17 09:40 Dose: 1 appl Ondansetron HCl (Zofran) 4 mg IV Q6H PRN PRN Reason: nausea/vomiting Stop: 09/21/17 00:59 Last Admin: 07/23/17 01:05 Dose: 4 mg Vancomycin HCl (Vancomycin Oral) 250 mg PO QID [facility] Stop: 09/21/17 08:59 Last Admin: 07/25/17 13:03 Dose: 250 mg General: no acute distress, well developed, well nourished HEENT: atraumatic, normocephalic, PERRLA Neck: supple, no thyromegaly, no lymphadenopathy, no rigid Cardiovascular: S1S2, regular Lungs: clear to auscultation bilaterally, clear to percussion Abdomen: soft, no tender, no distended Extremities: no cyanosis, no clubbing Neurological: oriented Skin: intact Infectious Disease Assmt/Plan - Assessment Assessment: 1. C. difficile colitis. No diarrhea now. 2. CVA. 3. HTN. 4. DM 2. 5. Coronary artery disease 6. Dementia, 7. Neurogenic bladder. - Plan Plan: Continue vancomycin orally 14 days. DC planning. Nutritional Asmnt/Malnutr-PDOC - Dietary Evaluation Malnutrition Findings (Please click <Entered> for more info): Nutritional Asmnt/Malnutrition Start: 07/23/17 16: 22 Text: Status: Complete Freq: Document 07/23/17 16:22 LCHENG (Rec: 07/23/17 16:54 [facility] [email or web address]) Nutritional Asmnt/Malnutrition Patient General Information Nutritional Screening High Risk Consult Diagnosis diarhhea Pertinent Medical Hx/Surgical Hx HTN, Dm, CVA/TIA, dementia, c- diff, atherosclerotic cardiovasculor disease, newregenic bladdar, suprapubic cathether, dementia Subjective Information Consult received for multiple wounds. Pt seen sitting up in bed having lunch at time of visit. Pt denied N/V today so far, stated appetite "so so". Spoke with CLEMENT Rivas, pt has been eating ok today. Current Diet Order/ Nutrition Support soft/bland Pertinent Medications D5-0.45ns, heparin, novolog, zofran, vancomycin Pertinent Labs 07/23 K 3.0, cl 110, glucose 184, POC 173-183 07/22 glucose 218, a1c 7.9 Nutritional Hx/Data Height 1.7 m Height (Calculated Centimeters) 170.2 Current Weight (lbs) 79.379 kg Weight (Calculated Kilograms) 79.4 Weight (Calculated Grams) 56085.7 [place] Body Weight 148 Body Mass Index (BMI) 27.3 Weight Status Overweight GI Symptoms GI Symptoms Nausea Vomitting Last BM not indicated Difficult in: None Skin Integrity/Comment: pressure ulceration to left foot, right ankle, right hip, left hip and sacrum Estimated Nutritional Goals BEE in Kcals: Adj wt of IBW Calories/Kcals/Kg 25-30 Kcals Calculated 0152-9337 Protein: Adj wt of IBW Protein g/k.2-1.4 Protein Calculated 84-98 Fluid: ml 1750-2100ml (1ml/kcal) Nutritional Problem 2. Problem Problem increased nutrition needs Etiology increased metabolic demand Signs/Symptoms: pressure ulcer multiple sites 1. Problem Problem altered nutrition related labs Etiology hx of DM Signs/Symptoms: glucose 184-218, POC 173-183, a1c 7.9 Malnutrition Alert Protein-Calorie Malnutrition N/A Is there a minimum of two criteria No selected? Query Text:Check all the applicable criteria. A minimum of two criteria are recommended for diagnosis of either severe or non-severe malnutrition. Intervention/Recommendation Comments 1. Recommend adding CCHO-60gm diet for better glycemia control, Arginaid BID for wound healing. RN notified. 2. Monitor PO intake, wt, labs and skin integrity 3. F/U as high risk in 2-3 days, 07/25-07/26 Expected Outcomes/Goals Expected Outcomes/Goals 1. PO intake to meet at least 75% of nutritional needs. 2. Wt stability, skin integrity to improve, labs to approach WNL.
[2017-07-26] MEDS: Sodium Chloride 0.45% 1,000 ML IV SCH ×2 (06:17→22:47)
[2017-07-26] MEDS: INSULIN ASPART SLIDING SCALE 100 UNITS/ML UNIT SUBQ SCH ×4 (06:47→22:55)
[2017-07-26] MEDS: Venelex 60gm Tube TP SCH (08:53)
[2017-07-26] MEDS: Vancomycin HCL 250 mg /10mL UDC PO SCH ×4 (08:54→22:31)
--- NOTE | 2017-07-26 11:46 | Infectious Disease Prog Note ---
Infectious Disease Subjective - Review of Systems Service Date: 07/26/17 Subjective: No diarrhea no fever. He denies any abdomen pain Infectious Disease Objective - Results Result Diagrams: 07/25/17 06:30 07/25/17 06:30 Recent Labs: Laboratory Last Values WBC 9.6 Th/cmm (4.8-10.8) 07/25/17 06:30 RBC 3.03 Mil/cmm (3.80-5.80) L 07/25/17 06:30 Hgb 8.7 gm/dL (12-16) L 07/25/17 06:30 Hct 26.2 % (41.0-60) L 07/25/17 06:30 MCV 86.4 fl (80-99) 07/25/17 06:30 MCH 28.8 pg (27.0-31.0) 07/25/17 06:30 MCHC Differential 33.4 pg (28.0-36.0) 07/25/17 06:30 RDW 17.5 % (11.5-20.0) 07/25/17 06:30 Plt Count 357 Th/cmm (150-400) 07/25/17 06:30 MPV 7.1 fl 07/25/17 06:30 Neutrophils % 76.1 % (40.0-80.0) 07/25/17 06:30 Lymphocytes % 13.2 % (20.0-50.0) L 07/25/17 06:30 Monocytes % 7.3 % (2.0-10.0) 07/25/17: Eosinophils % 2.9 % (0.0-5.0) 07/25/17: Basophils % 0.5 % (0.0-2.0) 07/25/17 06:30 Sodium 136 mEq/L (136-145) 07/25/17 06:30 Potassium 3.5 mEq/L (3.5-5.1) 07/25/17 06:30 Chloride 108 mEq/L (98-107) H 07/25/17 06:30 Carbon Dioxide 22.0 mEq/L (21.0-31.0) 07/25/17 06:30 Anion Gap 9.5 (7.0-16.0) 07/25/17 06:30 BUN 11 mg/dL (7-25) 07/25/17 06:30 Creatinine 0.6 mg/dL (0.7-1.3) L 07/25/17 06:30 Est GFR ( Amer) > 60.0 ml/min (>90) 07/25/17 06:30 Est GFR (Non-Af Amer) > 60.0 ml/min 07/25/17 06:30 BUN/Creatinine Ratio 18.3 07/25/17 06:30 Glucose 167 mg/dL (70-105) H 07/25/17 06:30 POC Glucose 129 MG/DL (70 - 105) H 07/26/17 05:53 Hemoglobin A1c % 7.9 % (4.0-6.0) H 07/22/17 15:05 Calcium 7.9 mg/dL (8.6-10.3) L 07/25/17 06:30 TSH 1.71 uIU/ml (0.34-5.60) 07/23/17 05:35 - Physical Exam Vitals and I&O: Vital Signs Temp 97.3 F 07/26/17 08:55 Pulse 57 07/26/17 08:55 Resp 19 07/26/17 08:55 BP 92/45 07/26/17 08:55 Pulse Ox 94 07/26/17 08:55 Intake & Output 07/25/17 07/26/17 07/26/17 18:59 06:59 18:59 Intake Total 966.25 906.25 Output Total 300 Balance 966.25 606.25 Weight (lbs) 83.461 kg Intake: Intake, IV Amount 966.25 906.25 Sodium Chloride 0.45% 1, 966.25 906.25 000 ml @ 75 mls/hr IV . [id number] [facility] Rx#:[id number] Output: Urine 300 Other: Weight Source Bedscale Active Medications: Current Medications [place] Oil/[place] Balsam/Trypsin (Venelex) 1 appl TP DAILY [facility] Stop: 09/21/17 13:59 Last Admin: 07/26/17 08:53 Dose: 1 appl Heparin Sodium (Porcine) (Heparin) 5,000 units SUBQ Q12H [facility] Stop: 09/21/17 20:59 Last Admin: 07/26/17 08:48 Dose: 5,000 units Sodium Chloride (Nacl 0.45%) 1,000 mls @ 75 mls/hr IV .[id number] [facility] Stop: 09/22/17 10:38 Last Admin: 07/26/17 06:17 Dose: 75 mls/hr Insulin Aspart (Novolog Insulin Sliding Scale) 0 units SUBQ ACHS [facility] PRN Reason: Protocol Stop: 09/21/17 07:29 Last Admin: 07/26/17 06:47 Dose: Not Given Miscellaneous (Probiotic Screen) 1 ea PRN PRN PRN Reason: PROTOCOL Stop: 09/21/17 08:29 Miscellaneous (Vte Chemical Prophylaxis Screen/ Admission) 1 ea PRN PRN PRN Reason: PROTOCOL Stop: 09/21/17 15:04 Mupirocin (Bactroban Oint) 1 appl NS BID [facility] Stop: 07/28/17 09:01 Last Admin: 07/26/17 08:53 Dose: 1 appl Ondansetron HCl (Zofran) 4 mg IV Q6H PRN PRN Reason: nausea/vomiting Stop: 09/21/17 00:59 Last Admin: 07/23/17 01:05 Dose: 4 mg Vancomycin HCl (Vancomycin Oral) 250 mg PO QID [facility] Stop: 09/21/17 08:59 Last Admin: 07/26/17 08:54 Dose: 250 mg General: no acute distress, well developed, well nourished HEENT: atraumatic, normocephalic, PERRLA, EOMI, moist mucous membrane Neck: supple, no thyromegaly Cardiovascular: S1S2, regular Lungs: clear to auscultation bilaterally, clear to percussion Abdomen: soft, no tender Extremities: no cyanosis, no clubbing, no edema Neurological: awake, alert, oriented Skin: intact Infectious Disease Assmt/Plan - Assessment Assessment: 1. C. difficile colitis. No diarrhea now. 2. CVA. 3. HTN. 4. DM 2. 5. Coronary artery disease 6. Dementia, 7. Neurogenic bladder. - Plan Plan: Change vancomycin orally to flagyl for 10 more days. discharge the patient to [facility] under Dr Arias for 14 days. DC planning. Nutritional Asmnt/Malnutr-PDOC - Dietary Evaluation Malnutrition Findings (Please click <Entered> for more info): Nutritional Asmnt/Malnutrition Start: 07/23/17 16: 22 Text: Status: Complete Freq: Document 07/23/17 16:22 ANGELA (Rec: 07/23/17 16:54 ANGELA [email or web address]) Nutritional Asmnt/Malnutrition Patient General Information Nutritional Screening High Risk Consult Diagnosis diarhhea Pertinent Medical Hx/Surgical Hx HTN, Dm, CVA/TIA, dementia, c- diff, atherosclerotic cardiovasculor disease, newregenic bladdar, suprapubic cathether, dementia Subjective Information Consult received for multiple wounds. Pt seen sitting up in bed having lunch at time of visit. Pt denied N/V today so far, stated appetite "so so". Spoke with RN Evelyn, pt has been eating ok today. Current Diet Order/ Nutrition Support soft/bland Pertinent Medications D5-0.45ns, heparin, novolog, zofran, vancomycin Pertinent Labs 07/23 K 3.0, cl 110, glucose 184, POC 173-183 07/22 glucose 218, a1c 7.9 Nutritional Hx/Data Height 1.7 m Height (Calculated Centimeters) 170.2 Current Weight (lbs) 79.379 kg Weight (Calculated Kilograms) 79.4 Weight (Calculated Grams) 51142.7 [place] Body Weight 148 Body Mass Index (BMI) 27.3 Weight Status Overweight GI Symptoms GI Symptoms Nausea Vomitting Last BM not indicated Difficult in: None Skin Integrity/Comment: pressure ulceration to left foot, right ankle, right hip, left hip and sacrum Estimated Nutritional Goals BEE in Kcals: Adj wt of IBW Calories/Kcals/Kg 25-30 Kcals Calculated 1590-5779 Protein: Adj wt of IBW Protein g/k.2-1.4 Protein Calculated 84-98 Fluid: ml 1750-2100ml (1ml/kcal) Nutritional Problem 2. Problem Problem increased nutrition needs Etiology increased metabolic demand Signs/Symptoms: pressure ulcer multiple sites 1. Problem Problem altered nutrition related labs Etiology hx of DM Signs/Symptoms: glucose 184-218, POC 173-183, a1c 7.9 Malnutrition Alert Protein-Calorie Malnutrition N/A Is there a minimum of two criteria No selected? Query Text:Check all the applicable criteria. A minimum of two criteria are recommended for diagnosis of either severe or non-severe malnutrition. Intervention/Recommendation Comments 1. Recommend adding CCHO-60gm diet for better glycemia control, Arg[place] BID for wound healing. RN notified. 2. Monitor PO intake, wt, labs and skin integrity 3. F/U as high risk in 2-3 days, 07/25-07/26 Expected Outcomes/Goals Expected Outcomes/Goals 1. PO intake to meet at least 75% of nutritional needs. 2. Wt stability, skin integrity to improve, labs to approach WNL.
[2017-07-26] MEDS ORDERED: Magnesium Hydroxide (MOM) 30 mL UDC PO PRN (12:01)
[2017-07-26] MEDS ORDERED: POLYETHYLENE GLYCOL 3350 17 GM PACK PO PRN (12:01)
--- NOTE | 2017-07-26 13:54 | Discharge Summary ---
DATE OF DISCHARGE: 07/26/2017 CHIEF COMPLAINT: Diarrhea. Stool for Clostridium diff positive. HISTORY OF PRESENT ILLNESS AND HOSPITAL COURSE: The patient is a 67-year-old male with a past medical history of dementia, hypertension, diabetes mellitus type 2, CVA, TIA, C. diff colitis, neurogenic bladder, coronary artery disease, brought from nursing facility for diarrhea. At the facility, his stool for C. diff toxin came positive. The patient was started on vancomycin orally. The patient had received 4 days of vancomycin. The patient was sent to the ER for further evaluation and management. The patient was afebrile and the patient's WBC count was 8400. The patient was started on vancomycin p.o. and had no significant diarrhea. As the patient was stable to sent back to nursing facility, we decided to transfer the patient back [facility]. However, family wanted to transfer the patient to [facility]. As per family request, we decided to discharge the patient to [facility] under Dr. Arias, the primary care physician. DISCHARGE CONDITION: Stable. DISCHARGE DISPOSITION: Nursing facility, [facility]. DISCHARGE DIAGNOSES: Clostridium difficile colitis, diabetes mellitus type 2, hypertension, cerebrovascular accident, dementia. DISCHARGE MEDICATIONS: As per reconciliation sheet. Referral to Dr. Arias and Dr. Morales, who is covering Dr. Arias at nursing facilities. JOB# [id number]
[2017-07-26] MEDS: Ferrous Sulfate 325 MG TAB PO SCH ×2 (14:31→22:32)
[2017-07-27] MEDS: INSULIN ASPART SLIDING SCALE 100 UNITS/ML UNIT SUBQ SCH (08:34)
[2017-07-27] MEDS ORDERED: Fenofibrate, Micronized 134 mg Cap PO SCH (09:00)
[2017-07-27] MEDS: Ferrous Sulfate 325 MG TAB PO SCH (09:00)
[2017-07-27] MEDS ORDERED: Multivitamin w/ Minerals Tab PO SCH (09:00)
[2017-07-27] MEDS ORDERED: Aspirin 81mg Chewable Tab PO SCH (09:00)
[2017-07-27] MEDS ORDERED: Vitamin B Complex w/Vitamin C Tab PO SCH (09:00)
[2017-07-27] MEDS ORDERED: Fish Oil 1,000 MG SGL PO SCH (09:00)
[2017-07-27] MEDS: Venelex 60gm Tube TP SCH (09:01)
[2017-07-27] MEDS: Vancomycin HCL 250 mg /10mL UDC PO SCH (10:50)
== END 2017-07-27 12:00 | DRG 371 ==
LOC: ER 14:35 → MSI 18:10
PROVIDERS: ADMIT Internal Medicine; ATTEND Internal Medicine
DX: A04.72 Enterocolitis due to Clostridium difficile, not specified as recurrent (principal); G93.40 Encephalopathy, unspecified; I10 Essential (primary) hypertension; E11.9 Type 2 diabetes mellitus without complications; F03.90 Unspecified dementia, unspecified severity, without behavioral disturbance, psychotic disturbance, mood disturbance, and anxiety; D53.9 Nutritional anemia, unspecified; I25.10 Atherosclerotic heart disease of native coronary artery without angina pectoris; N31.9 Neuromuscular dysfunction of bladder, unspecified; E86.0 Dehydration; Z79.899 Other long term (current) drug therapy; Z86.73 Personal history of transient ischemic attack (TIA), and cerebral infarction without residual deficits; Z79.82 Long term (current) use of aspirin
CPT/HCPCS: 36415-UA; 71045-TC; 80048-TC; 82948-90; 83036-90; 84443-TC; 85025-TC; 87230-TC; A4216; J1644; J1815; J2405; J3370; J3480; J7030; J7042; Z7610